=== PATIENT | male | born 1935 | race Native Hawaiian/Other Pacific Islander ===

== ENCOUNTER 2017-01-05 12:47 | Outpatient (CLI) | payer OTHER, BC ==
[~2017-01-05 12:47] MED LIST: ASA LO-DOSE81 MG OR; ASPIRIN325 M1 OR; BYSTOLIC2.5 MG PO; CLOP75TA2 PO; NITR0.4S2 SL; PLAVIX75 MG PO
[2017-01-05 13:28] LABS: PLATELET COUNT 221 K/uL (142-355)
[2017-01-05 13:58] LABS: POTASSIUM 4.3 mmol/L (3.6-5.2); SODIUM 142 mmol/L (136-145)
== END 2017-01-05 20:02 | disposition home or self-care (01) ==
LOC: LAB 12:47
PROVIDERS: Nurse Practitioner Family
DX: I25.10 Atherosclerotic heart disease of native coronary artery without angina pectoris (principal); I10 Essential (primary) hypertension; E78.4 Other hyperlipidemia; R39.198 Other difficulties with micturition; E55.9 Vitamin D deficiency, unspecified
CPT/HCPCS: 80053; 80061; 82306; 82607; 83036; 84154; 84439; 84443; 85027

== ENCOUNTER 2017-02-22 13:21 | Outpatient (CLI) | payer OTHER, BC ==
[2017-02-22 13:59] LABS: PLATELET COUNT 218 K/uL (142-355)
[2017-02-22 14:21] LABS: POTASSIUM 4.1 mmol/L (3.6-5.2); SODIUM 141 mmol/L (136-145)
== END 2017-02-22 14:33 | disposition home or self-care (01) ==
LOC: LAB 13:21
PROVIDERS: Nurse Practitioner Family
DX: I10 Essential (primary) hypertension (principal); E55.9 Vitamin D deficiency, unspecified; I25.10 Atherosclerotic heart disease of native coronary artery without angina pectoris; E78.4 Other hyperlipidemia; R39.198 Other difficulties with micturition; Z79.899 Other long term (current) drug therapy; R53.83 Other fatigue; R53.81 Other malaise; Z51.81 Encounter for therapeutic drug level monitoring
CPT/HCPCS: 80053; 80061; 82306; 82607; 83036; 84436; 84443; 85027

== ENCOUNTER 2017-08-02 14:06 | Outpatient (CLI) | payer OTHER, BC ==
[2017-08-02 15:06] LABS: PLATELET COUNT 210 K/uL (142-355)
[2017-08-02 15:19] LABS: POTASSIUM 4.2 mmol/L (3.6-5.2); SODIUM 140 mmol/L (136-145)
== END 2017-08-02 19:12 | disposition home or self-care (01) ==
LOC: LAB 14:06
PROVIDERS: Nurse Practitioner Family
DX: I10 Essential (primary) hypertension (principal); E55.9 Vitamin D deficiency, unspecified; I25.10 Atherosclerotic heart disease of native coronary artery without angina pectoris; E78.5 Hyperlipidemia, unspecified; R39.198 Other difficulties with micturition; R53.81 Other malaise; R53.83 Other fatigue; Z00.00 Encounter for general adult medical examination without abnormal findings; Z79.899 Other long term (current) drug therapy; G25.0 Essential tremor; M25.50 Pain in unspecified joint
CPT/HCPCS: 80053; 80061; 83036; 84154; 84436; 84443; 84550; 85027; 85651; 86039

== ENCOUNTER 2017-11-02 13:28 | Outpatient (CLI) | payer OTHER ==
[2017-11-02 14:37] LABS: PLATELET COUNT 208 K/uL (142-355)
[2017-11-02 14:53] LABS: POTASSIUM 4.1 mmol/L (3.6-5.2)
== END 2017-11-02 21:28 | disposition home or self-care (01) ==
LOC: LAB 13:28
PROVIDERS: Nurse Practitioner Family
DX: I10 Essential (primary) hypertension (principal); E55.9 Vitamin D deficiency, unspecified; I25.10 Atherosclerotic heart disease of native coronary artery without angina pectoris; E78.4 Other hyperlipidemia; R39.198 Other difficulties with micturition; R53.81 Other malaise; Z79.899 Other long term (current) drug therapy; Z51.81 Encounter for therapeutic drug level monitoring
CPT/HCPCS: 80053; 80061; 83036; 84436; 84443; 85027

== ENCOUNTER 2018-03-01 12:02 | Outpatient (CLI) | payer OTHER ==
[2018-03-01 12:41] LABS: PLATELET COUNT 243 K/uL (142-355)
[2018-03-01 13:06] LABS: POTASSIUM 4.4 mmol/L (3.6-5.2)
== END 2018-03-01 19:14 | disposition home or self-care (01) ==
LOC: LAB 12:02
PROVIDERS: Nurse Practitioner Family
DX: I10 Essential (primary) hypertension (principal); E55.9 Vitamin D deficiency, unspecified; I25.10 Atherosclerotic heart disease of native coronary artery without angina pectoris; E78.4 Other hyperlipidemia; R39.198 Other difficulties with micturition; Z79.899 Other long term (current) drug therapy; Z51.81 Encounter for therapeutic drug level monitoring
CPT/HCPCS: 80053; 80061; 83036; 84154; 84436; 84443; 85027

== ENCOUNTER 2018-03-08 09:32 | Outpatient (CLI) | payer OTHER, MEDICARE | END 2018-03-08 22:03 | disposition home or self-care (01) | LOC: US 09:32 | DX: R42 Dizziness and giddiness (principal); R55 Syncope and collapse ==

== ENCOUNTER 2019-03-21 08:23 | Outpatient (CLI) | payer OTHER, MEDICARE | END 2019-03-21 19:07 | disposition home or self-care (01) | LOC: CT 08:23 | DX: R07.9 Chest pain, unspecified (principal) | CPT/HCPCS: 36415; 82565; 84520; Q9963 ==

== ENCOUNTER 2019-08-28 08:02 | Outpatient (CLI) | payer OTHER, MEDICARE ==
[~2019-08-28] VITALS: Ht 177.8 cm; Wt 59.0 kg
== END 2019-08-28 19:39 | disposition home or self-care (01) ==
LOC: NM 08:02
DX: R07.89 Other chest pain (principal)
CPT/HCPCS: A9500; J2785